=== PATIENT | female | born 1935 | race Caucasian/White ===

== ENCOUNTER 2017-03-23 20:09 | Inpatient (IN) | payer OTHER ==
--- NOTE | 2017-03-23 21:17 | PDOC ---
History of Present Illness - General History Source: Patient Exam Limitations: No Limitations - History of Present Illness Initial Comments: 03/23/17 23:02 The patient is an 81 year old female with a significant past medical history of HTN DM HLD CHF, who presents to the ED with worsening yellowing and itching of the skin. Patient has been in [place] since September. She returned home yesterday for jaundice concerns for the past ten days. She denies any abdominal pain, fever, chills. She reports losing 15 pounds since she left. She reports decreased appetite, and has noticed dark urine. She states she had an MRCP done in [place] which was nondiagnostic. She had a CT scan done as well which showed questionable pancreatitis mass. She was discharged with questionable Cholangitis, not put on antibiotics. <Lucien Mcgill - Last Filed: 03/24/17 01:33> <Malena Hernandez - Last Filed: 03/24/17 01:38> - General Chief Complaint: Jaundice Stated Complaint: YELLOW SKIN/YELLOW EYES Time Seen by Provider: 03/23/17 20:57 Past History <Lucien Mcgill - Last Filed: 03/24/17 01:33> - Past Medical History Cardiac Disorders: Yes (heart problems/a.fib) HTN: Yes Hypercholesterolemia: Yes (border line) Other medical history: edema - Immunization History Immunization Up to Date: Yes - Psycho/Social/Smoking Cessation Hx Anxiety: No Suicidal Ideation: No Smoking History: Never smoked Hx Alcohol Use: No Drug/Substance Use Hx: No Substance Use Type: None <Malena Hernandez - Last Filed: 03/24/17 01:38> - Past Medical History Allergies/Adverse Reactions: Allergies Allergy/AdvReac Type Severity Reaction Status Date / Time No Known Allergies Allergy Verified 03/23/17 20:30 Home Medications: Ambulatory Orders Ramipril 2.5 mg PO DAILY 08/14/16 Warfarin Na [Coumadin -] 3 mg PO DAILY 08/14/16 Bisoprolol Fumarate [Zebeta (Nf) -] 5 mg PO DAILY 03/23/17 Furosemide [Lasix -] 20 mg PO DAILY PRN 03/23/17 Review of Systems - Review of Systems Able to Perform ROS?: Yes Comments:: 03/23/17 23:02 GENERAL/CONSTITUTIONAL: No fever or chills. No weakness. HEAD, EYES, EARS, NOSE AND THROAT: No change in vision. No ear pain or discharge. No sore throat. CARDIOVASCULAR: No chest pain or shortness of breath. RESPIRATORY: No cough, wheezing, or hemoptysis. GASTROINTESTINAL: No nausea, vomiting, diarrhea or constipation. GENITOURINARY: No dysuria, frequency, or change in urination. MUSCULOSKELETAL: No joint or muscle swelling or pain. No neck or back pain. SKIN: + yellowing and itching of the skin. NEUROLOGIC: No headache, vertigo, loss of consciousness, or change in strength/ sensation. ENDOCRINE: + Decreased appetite. + lost 15 pounds. No increased thirst. HEMATOLOGIC/LYMPHATIC: No anemia, easy bleeding, or history of blood clots. ALLERGIC/IMMUNOLOGIC: No hives or skin allergy. <Lucien Mcgill - Last Filed: 03/24/17 01:33> *Physical Exam - Vital Signs Last Vital Signs Temp Pulse Resp BP Pulse Ox 97.8 F 97 H 20 130/87 98 03/23/17 20:32 03/23/17 20:32 03/23/17 20:32 03/23/17 20:32 03/23/17 20:32 - Physical Exam Comments: 03/23/17 23:03 GENERAL: Awake, alert, and fully oriented, in no acute distress HEAD: No signs of trauma EYES: Eyes icteric. PERRLA, EOMI, conjunctiva clear ENT: Auricles normal inspection, hearing grossly normal, nares patent, oropharynx clear without exudates. Moist mucosa NECK: Normal ROM, supple, no lymphadenopathy, JVD, or masses LUNGS: Breath sounds equal, clear to auscultation bilaterally. No wheezes, and no crackles HEART: Regular rate and rhythm, normal S1 and S2, no murmurs, rubs or gallops ABDOMEN: Soft, nontender, normoactive bowel sounds. No guarding, no rebound. No masses EXTREMITIES: Normal range of motion, no edema. No clubbing or cyanosis. No cords, erythema, or tenderness NEUROLOGICAL: Normal speech, normal gait SKIN: Skin is extremely jaundice. No appreciated rash <Lucien Mcgill - Last Filed: 03/24/17 01:33> - Vital Signs Last Vital Signs Temp Pulse Resp BP Pulse Ox 97.8 F 97 H 20 130/87 98 03/23/17 20:32 03/23/17 20:32 03/23/17 20:32 03/23/17 20:32 03/23/17 20:32 <Malena Hernandez - Last Filed: 03/24/17 01:38> ED Treatment Course - LABORATORY CBC & Chemistry Diagram: 03/23/17 21:16 03/23/17 21:16 - ADDITIONAL ORDERS Additional order review: Laboratory Results 03/23/17 03/23/17 03/23/17 21:39 21:16 21:16 Sodium Potassium Chloride Carbon Dioxide Anion Gap BUN Creatinine Creat Clearance w eGFR Random Glucose Lactic Acid 0.9 Calcium Total Bilirubin AST ALT Alkaline Phosphatase Ammonia Total Protein Albumin Lipase Urine Color Laura Urine Appearance Clear Urine pH 5.0 Urine Protein 2+ H Urine Glucose (UA) Negative Urine Ketones Negative Urine Blood 1+ H Urine Nitrite Negative Urine Bilirubin 4.0 Urine Urobilinogen 4.0 e.u/dl H Ur Leukocyte Esterase 1+ H Urine RBC 4 Urine WBC 47 Ur Epithelial Cells Rare Urine Bacteria Rare Urine Mucus Many Blood Type B POSITIVE Antibody Screen Negative 03/23/17 03/23/17 21:16 21:16 Sodium 141 Potassium 3.7 Chloride 106 Carbon Dioxide 24 Anion Gap 11 BUN 20 H Creatinine 0.8 Creat Clearance w eGFR > 60 Random Glucose 134 H D Lactic Acid Calcium 9.0 Total Bilirubin 21.6 H* D AST 53 H D ALT 45 D Alkaline Phosphatase 319 H D Ammonia 16.79 Total Protein 7.3 Albumin 3.0 L Lipase 6102 H Urine Color Urine Appearance Urine pH Urine Protein Urine Glucose (UA) Urine Ketones Urine Blood Urine Nitrite Urine Bilirubin Urine Urobilinogen Ur Leukocyte Esterase Urine RBC Urine WBC Ur Epithelial Cells Urine Bacteria Urine Mucus Blood Type Antibody Screen 03/23/17 21:16 RBC 4.09 MCV 97.3 H MCHC 33.6 RDW 17.0 H D MPV 9.1 D Neutrophils % 65.1 Lymphocytes % 23.5 Monocytes % 9.5 Eosinophils % 1.2 Basophils % 0.7 <Lucien Mcgill - Last Filed: 03/24/17 01:33> - LABORATORY CBC & Chemistry Diagram: 03/23/17 21:16 03/23/17 21:16 <Malena Hernandez - Last Filed: 03/24/17 01:38> Medical Decision Making - Medical Decision Making 03/23/17 23:[address] Hebert Discussed case with Dr. Banks. Paged Dr. Hebert at 00:30. Paged Dr Hebert at 01:06 (third call). 03/24/17 01:[address] Hebert. <Lucien Mcgill - Last Filed: 03/24/17 01:33> - Medical Decision Making 03/23/17 21:13 81 yo F with h/o HTN DM HLD CHF, here visiting from [place] ( lives alternating countries [place] 6 mo) here with jaundice for uncertain amount of time. was seen in [place], performed an ERCP, questionable pancreatic mass. diagnosed her with cholangitis? but did not treat abx. no n/v/abd pain or weight loss. also c/o diffuse rash pruritic. on exam awake alert slceral icteris, jaundice. lungs clear , heart rrr no mrg. abd NT ND . ext wwp nuero alert and oriented x 3. differential: pancreatic ca, obstruciton, infection, lytic jauncide. liver mass. ct a/p, labs. 03/23/17 22:51 <Malena Hernandez - Last Filed: 03/24/17 01:38> *DC/Admit/Observation/Transfer - Attestations Scribe Attestion: 03/23/17 23:04 Documentation prepared by Lucien Mcgill, acting as medical management trainer for Malena Hernandez MD, MD. <Lucien Mcgill - Last Filed: 03/24/17 01:33> - Discharge Dispostion Admit: Yes <Malena Hernandez - Last Filed: 03/24/17 01:38> Diagnosis at time of Disposition: Hyperbilirubinemia, Biliary tract obstruction - Referrals Referrals: Latesha Walton MD [Primary Care Provider] -
[2017-03-23 21:27] LABS: BASOPHIL 0.7 % (0-2.0); EOSINOPHIL 1.2 % (0-4.5); MCH 32.7 pg (25.7-33.7); MCHC 33.6 g/dl (32.0-36.0); MEAN CELL VOLUME 97.3 fl (80-96); MEAN PLT VOLUME 9.1 fl (7.5-11.1); NEUTROPHILS 65.1 % (42.8-82.8); PLATELET COUNT 212 K/MM3 (134-434); WHITE BLOOD COUNT 5.7 K/mm3 (4.0-10.0)
[2017-03-23 21:46] LABS: URINE APPEARANCE CLEAR; URINE COLOR AMBER; URINE GLUCOSE (UA) NEGATIVE (NEGATIVE); URINE KETONE NEGATIVE (NEGATIVE); URINE NITRITE NEGATIVE (NEGATIVE); URINE UROBILINOGEN 4.0 E.U/dl E.U./dl (0.2-1.0)
[2017-03-23 21:53] LABS: URINE BLOOD 1+ (NEGATIVE); URINE LEUK ESTERASE 1+ (NEGATIVE); URINE PROTEIN 2+ (NEGATIVE)
[2017-03-23 21:56] LABS: URINE BACTERIA RARE /hpf (NONE SEEN); URINE MUCUS MANY; URINE RBC 4 /hpf (0-3); URINE WBC 47 /hpf (3-5)
[2017-03-23 21:58] LABS: ANION GAP 11 (8-16); CO2 24 mmol/L (21-32); CREATININE 0.8 mg/dL (0.55-1.02); GLUCOSE,RANDOM 134 mg/dL (74-106); SGOT/AST 53 U/L (15-37); SGPT/ALT 45 U/L (12-78)
[2017-03-23 22:07] LABS: ALK PHOS 319 U/L (45-117)
[2017-03-23 22:13] LABS: TOT PROT 7.3 g/dl (6.4-8.2)
[2017-03-23 22:14] LABS: BILIRUBIN,TOTAL 21.6 mg/dL (0.2-1.0)
[2017-03-23] MEDS ORDERED: SODIUM CHLORIDE 0.9% 1000 ML INFUS.BAG IV ONE (22:54)
[2017-03-24 04:08] VITALS: BMI 29.8
[2017-03-24 09:07] LABS: EOSINOPHIL 2.4 % (0-4.5); MCH 33.5 pg (25.7-33.7); MCHC 34.2 g/dl (32.0-36.0); MEAN CELL VOLUME 98.1 fl (80-96); NEUTROPHILS 59.1 % (42.8-82.8); PLATELET COUNT 195 K/MM3 (134-434); RDW 17.4 % (11.6-15.6); WHITE BLOOD COUNT 4.5 K/mm3 (4.0-10.0)
[2017-03-24 09:20] LABS: INR 1.25 (0.82-1.09); PROTHROMBIN TIME (PATIENT) 13.8 SEC (9.98-11.88)
[2017-03-24 09:34] LABS: CALCIUM 8.6 mg/dL (8.5-10.1)
[2017-03-24 09:51] LABS: ALBUMIN 2.5 g/dl (3.4-5.0); ALK PHOS 299 U/L (45-117); AMYLASE 209 U/L (25-115); ANION GAP 9 (8-16); CO2 23 mmol/L (21-32); CREATININE 0.8 mg/dL (0.55-1.02); GLUCOSE,RANDOM 89 mg/dL (74-106); SGOT/AST 52 U/L (15-37); SGPT/ALT 39 U/L (12-78); TOT PROT 6.7 g/dl (6.4-8.2)
[2017-03-24] MEDS: NEBIVOLOL 5 MG TABLET (FP) PO SCH (10:37)
[2017-03-24] MEDS: D5-1/2NS+20 MEQ KCL - 1,000 ML IV SCH (10:37)
[2017-03-24] MEDS: PANTOPRAZOLE 40 MG TABLET (FP) PO SCH (10:37)
[2017-03-24] MEDS: RAMIPRIL 2.5 MG CAPSULE (FP) PO SCH (10:38)
[2017-03-24 10:40] LABS: BILIRUBIN,TOTAL 19.3 mg/dL (0.2-1.0)
--- NOTE | 2017-03-24 12:03 | HP ---
Admitting History and Physical - Primary Care Physician PCP: Latesha Walton - Admission History Source: Family Member (DAUGHTER) Limitations to Obtaining History: Language Barrier (SPEAKS [place]ULGARIAN ONLY) - Past Medical History Cardiovascular: Yes: AFIB - Past Surgical History Past Surgical History: Yes: None - Smoking History Smoking history: Former smoker Have you smoked in the past 12 months: No - Alcohol/Substance Use Hx Alcohol Use: No Home Medications - Allergies Allergies/Adverse Reactions: Allergies Allergy/AdvReac Type Severity Reaction Status Date / Time No Known Allergies Allergy Verified 03/23/17 20:30 - Home Medications Home Medications: Ambulatory Orders Ramipril 2.5 mg PO DAILY 08/14/16 Warfarin Na [Coumadin -] 3 mg PO DAILY 08/14/16 Bisoprolol Fumarate [Zebeta (Nf) -] 5 mg PO DAILY 03/23/17 Furosemide [Lasix -] 20 mg PO DAILY PRN 03/23/17 Physical Examination Vital Signs: Vital Signs Temperature 98.6 F 03/24/17 06:00 Pulse Rate 109 H 03/24/17 06:00 Respiratory Rate 20 03/24/17 06:00 Blood Pressure 126/73 03/24/17 06:00 O2 Sat by Pulse Oximetry (%) 97 03/24/17 04:08 Constitutional: Yes: Well Nourished, No Distress, Calm Cardiovascular: Yes: Regular Rate and Rhythm Respiratory: Yes: Regular Gastrointestinal: Yes: Normal Bowel Sounds, Soft Musculoskeletal: Yes: WNL Extremities: Yes: WNL Edema: Yes Edema: LLE: Trace, RLE: Trace Peripheral Pulses WNL: Yes Labs: CBC, BMP 03/24/17 08:45 03/24/17 08:45 Problem List - Problems (1) Biliary obstruction Assessment/Plan: CT ABDOMEN REVIEWED AWAITING ERCP IVF NPO Code(s): K83.1 - OBSTRUCTION OF BILE DUCT (2) Hyperbilirubinemia Assessment/Plan: PATIENT ASYMPTOMATIC, NO ABDOMINAL PAIN AWAITING ERCP Abnormal Lab Results 03/23/17 03/23/17 03/23/17 21:16 21:16 21:39 MCV 97.3 H RDW 17.0 H D Monocytes % INR Chloride BUN 20 H Random Glucose 134 H D Total Bilirubin 21.6 H* D Direct Bilirubin AST 53 H D Alkaline Phosphatase 319 H D Albumin 3.0 L Total Amylase Lipase 6102 H Urine Protein 2+ H Urine Blood 1+ H Urine Urobilinogen 4.0 e.u/dl H Ur Leukocyte Esterase 1+ H 03/23/17 03/24/17 03/24/17 23:22 08:45 08:45 MCV 98.1 H RDW 17.4 H Monocytes % 10.7 H INR 1.25 H D Chloride BUN Random Glucose Total Bilirubin Direct Bilirubin 17.1 H* AST Alkaline Phosphatase Albumin Total Amylase Lipase Urine Protein Urine Blood Urine Urobilinogen Ur Leukocyte Esterase 03/24/17 08:45 MCV RDW Monocytes % INR Chloride 109 H BUN Random Glucose Total Bilirubin 19.3 H* Direct Bilirubin AST 52 H Alkaline Phosphatase 299 H Albumin 2.5 L Total Amylase 209 H Lipase 2894 H Urine Protein Urine Blood Urine Urobilinogen Ur Leukocyte Esterase Code(s): E80.6 - OTHER DISORDERS OF BILIRUBIN METABOLISM (3) CHF (congestive heart failure) Code(s): I50.9 - HEART FAILURE, UNSPECIFIED Assessment/Plan GI CONSULT ERCP IVF LABS IN AM
--- NOTE | 2017-03-24 18:47 | CON.GI ---
Consult Consult Specialty:: GASTROENTEROLOGY Referred by:: SAVANAH Reason for Consultation:: JAUNDICE, ABNORMAL LIVER TEST, ABNORMAL USG, CT AND MRI - History Source History Provided By: Patient, Family Member, Medical Record Limitations to Obtaining History: No Limitations - Past Medical History Cardio/Vascular: Yes: AFIB, HTN - Past Surgical History Past Surgical History: Yes: None - Alcohol/Substance Use Hx Alcohol Use: No - Smoking History Smoking history: Former smoker Have you smoked in the past 12 months: No - Social History Usual Living Arrangement: With Child Home Medications - Allergies Allergies/Adverse Reactions: Allergies Allergy/AdvReac Type Severity Reaction Status Date / Time No Known Allergies Allergy Verified 03/23/17 20:30 - Home Medications Home Medications: Ambulatory Orders Ramipril 2.5 mg PO DAILY 08/14/16 Warfarin Na [Coumadin -] 3 mg PO DAILY 08/14/16 Bisoprolol Fumarate [Zebeta (Nf) -] 5 mg PO DAILY 03/23/17 Furosemide [Lasix -] 20 mg PO DAILY PRN 03/23/17 Family Disease History - Family Disease History Other Family History: noN CONTRIBUTORY Review of Systems - Review of Systems Constitutional: reports: Loss of Appetite, Unintentional Wgt. Loss, Weakness Gastrointestinal: reports: Indigestion, Nausea Physical Exam-GI Vital Signs: Vital Signs Temperature 98.8 F 03/24/17 18:00 Pulse Rate 81 03/24/17 18:00 Respiratory Rate 20 03/24/17 18:00 Blood Pressure 109/65 03/24/17 18:00 O2 Sat by Pulse Oximetry (%) 98 03/24/17 09:00 Constitutional: Yes: No Distress Labs: CBC, BMP 03/24/17 08:45 03/24/17 08:45 INR, PTT INR 1.25 (0.82-1.09) H D 03/24/17 08:45 Imaging - Results Cat Scan: Report Reviewed, Image Reviewed Ultrasound: Report Reviewed, Image Reviewed MRI: Report Reviewed, Image Reviewed Problem List - Problems (1) Biliary obstruction Code(s): K83.1 - OBSTRUCTION OF BILE DUCT
[2017-03-25] MEDS: D5-1/2NS+20 MEQ KCL - 1,000 ML IV SCH ×2 (05:17→11:20)
[2017-03-25 07:31] LABS: BASOPHIL 0.9 % (0-2.0); EOSINOPHIL 1.6 % (0-4.5); MCH 33.8 pg (25.7-33.7); MCHC 34.6 g/dl (32.0-36.0); MEAN CELL VOLUME 97.7 fl (80-96); MEAN PLT VOLUME 8.9 fl (7.5-11.1); NEUTROPHILS 55.9 % (42.8-82.8); PLATELET COUNT 196 K/MM3 (134-434); RDW 17.2 % (11.6-15.6); WHITE BLOOD COUNT 4.9 K/mm3 (4.0-10.0)
[2017-03-25 08:07] LABS: ALBUMIN 2.5 g/dl (3.4-5.0); ALK PHOS 303 U/L (45-117); ANION GAP 11 (8-16); CALCIUM 8.4 mg/dL (8.5-10.1); CO2 24 mmol/L (21-32); CREATININE 0.9 mg/dL (0.55-1.02); GLUCOSE,RANDOM 96 mg/dL (74-106); SGOT/AST 54 U/L (15-37); SGPT/ALT 40 U/L (12-78)
[2017-03-25 08:27] LABS: BILIRUBIN,TOTAL 19.9 mg/dL (0.2-1.0); TOT PROT 6.5 g/dl (6.4-8.2)
[2017-03-25 08:45] LABS: INR 1.35 (0.82-1.09); PROTHROMBIN TIME (PATIENT) 14.9 SEC (9.98-11.88)
[2017-03-25] MEDS: RAMIPRIL 2.5 MG CAPSULE (FP) PO SCH (09:20)
[2017-03-25] MEDS: NEBIVOLOL 5 MG TABLET (FP) PO SCH (09:21)
[2017-03-25] MEDS: PANTOPRAZOLE 40 MG TABLET (FP) PO SCH (09:21)
--- NOTE | 2017-03-25 09:26 | PN ---
Progress Note, Physician History of Present Illness: no pain jaundice - Current Medication List Current Medications: Active Medications Diphenhydramine HCl (Benadryl Injection -) 50 mg IVPUSH BID [facility] Last Admin: 03/24/17 21:43 Dose: 50 mg Potassium Chloride/Dextrose/Sod Cl (D5-1/2ns+20 Meq Kcl -) 1,000 mls @ 75 mls/ hr IV ASDIR [facility] Last Admin: 03/25/17 05:17 Dose: 75 mls/hr Nebivolol (Bystolic -) 10 mg PO DAILY [facility] Last Admin: 03/24/17 10:37 Dose: 10 mg Pantoprazole Sodium (Protonix -) 40 mg PO DAILY [facility] Last Admin: 03/24/17 10:37 Dose: 40 mg Ramipril (Altace -) 2.5 mg PO DAILY [facility] Last Admin: 03/24/17 10:38 Dose: 2.5 mg - Objective Vital Signs: Vital Signs Temperature 98.7 F 03/25/17 06:00 Pulse Rate 79 03/25/17 06:00 Respiratory Rate 18 03/25/17 06:00 Blood Pressure 139/99 03/25/17 06:00 O2 Sat by Pulse Oximetry (%) 98 03/24/17 09:00 Cardiovascular: Yes: Regular Rate and Rhythm Respiratory: Yes: Regular, CTA Bilaterally Gastrointestinal: Yes: Normal Bowel Sounds, Soft. No: Tenderness Labs: CBC, BMP 03/25/17 06:00 03/25/17 06:00 INR, PTT INR 1.35 (0.82-1.09) H 03/25/17 06:00 Problem List - Problems (1) Biliary obstruction Assessment/Plan: CA 19-9 HIGH FOR ERCP TODAY AC ON HOLD FURTHER W/U PER GI Code(s): K83.1 - OBSTRUCTION OF BILE DUCT (2) Hyperbilirubinemia Assessment/Plan: R/O CHOLANGIOCARCINOMA Code(s): E80.6 - OTHER DISORDERS OF BILIRUBIN METABOLISM (3) Afib Assessment/Plan: AC ONCE CLEARED BY GI CARDIO Code(s): I48.91 - UNSPECIFIED ATRIAL FIBRILLATION Qualifiers: Atrial fibrillation type: unspecified Qualified Code(s): I48.91 - Unspecified atrial fibrillation (4) CHF (congestive heart failure) Assessment/Plan: HOLD LASIX Code(s): I50.9 - HEART FAILURE, UNSPECIFIED
[2017-03-25] MEDS ORDERED: PROPOFOL 20 ML ONE (09:50)
[2017-03-25] MEDS ORDERED: SUCCINYLCHOLINE CHLORIDE 200 MG/10 ML VIAL ONE (09:51)
[2017-03-25] MEDS ORDERED: ONDANSETRON 4 MG/2 ML VIAL ONE (09:51)
[2017-03-25] MEDS ORDERED: INDOMETHACIN 50 MG RECTAL SUPPOSITORY PR ONE ×3 (10:30→10:45)
[2017-03-25] MEDS ORDERED: CIPROFLOXACIN 400 MG/D5W 200 ML IVPB ONE (10:30)
[2017-03-25] MEDS ORDERED: CIPROFLOXACIN 400 MG PREMIX BAG IVPB ONE (10:45)
[2017-03-25] MEDS ORDERED: NEOSTIGMINE METHYLSULFATE 0.5 MG/ML - 10 ML MDV ONE (12:04)
[2017-03-25] MEDS ORDERED: ONDANSETRON 4 MG/2 ML VIAL IVPUSH PRN (12:23)
--- NOTE | 2017-03-25 12:39 | CON.CARD ---
Consult Consult Specialty:: Cardiology Referred by:: Dr Hebert Reason for Consultation:: atrial fibrillation - History of Present Illness Chief Complaint: jaundice History of Present Illness: She is an 81 year old woman with a history of HTN NIDDM HLD, atrial fibrillation on coumadin, who was admitted with painless jaundice for one month. Underwent ERCP today with stricture and sphincterotomy with stent placement x 2. No history of angina, orthopnea, PND or edema. Baseline exercise tolerance is excellent as per her daughter. - History Source History Provided By: Family Member, Medical Record Limitations to Obtaining History: Language Barrier - Past Medical History Cardio/Vascular: Yes: AFIB, HTN - Past Surgical History Past Surgical History: Yes: None - Alcohol/Substance Use Hx Alcohol Use: No - Smoking History Smoking history: Former smoker Have you smoked in the past 12 months: No - Social History Usual Living Arrangement: With Child Home Medications - Allergies Allergies/Adverse Reactions: Allergies Allergy/AdvReac Type Severity Reaction Status Date / Time No Known Allergies Allergy Verified 03/23/17 20:30 - Home Medications Home Medications: Ambulatory Orders Ramipril 2.5 mg PO DAILY 08/14/16 Warfarin Na [Coumadin -] 3 mg PO DAILY 08/14/16 Bisoprolol Fumarate [Zebeta (Nf) -] 5 mg PO DAILY 03/23/17 Furosemide [Lasix -] 20 mg PO DAILY PRN 03/23/17 Family Disease History - Family Disease History Other Family History: noN CONTRIBUTORY Review of Systems - Review of Systems Constitutional: reports: Malaise, Unintentional Wgt. Loss Cardiovascular: reports: No Symptoms Respiratory: reports: No Symptoms Vital Signs: Vital Signs Temperature 98.1 F 03/25/17 08:00 Pulse Rate 68 03/25/17 08:00 Respiratory Rate 16 03/25/17 08:00 Blood Pressure 125/79 03/25/17 08:00 O2 Sat by Pulse Oximetry (%) 98 03/24/17 09:00 Constitutional: Yes: No Distress Eyes: Yes: EOM Intact, Sclera Icterus HENT: Yes: Atraumatic, Normocephalic Neck: Yes: Supple, Trachea Midline Respiratory: Yes: Regular, CTA Bilaterally Gastrointestinal: Yes: Normal Bowel Sounds, Soft Cardiovascular: Yes: Pulse Irregular JVD: No Carotid Bruit: No PMI: Non-Displaced Heart Sounds: Yes: S1, S2 Murmur: Yes: Systolic Murmur, Grade 1 Musculoskeletal: Yes: WNL Extremities: Yes: WNL Edema: No Peripheral Pulses WNL: Yes - Other Data Labs, Other Data: CBC, BMP 03/25/17 06:00 03/25/17 06:00 INR, PTT INR 1.35 (0.82-1.09) H 03/25/17 06:00 Imaging - Results EKG: Report Reviewed (afib nssttw changes.) Problem List - Problems (1) Afib Assessment/Plan: Rates are controlled on beta kal. Would hold coumadin for now, resume when stable in the future as there are undoubtedly more procedures to be done in this patient who likely has pancreatic cancer. continue nebivolol for now. would get echo to assess LV function. No cardiac contraindications to EUS, biopsy. Likely transfer to another facility for this. Code(s): I48.91 - UNSPECIFIED ATRIAL FIBRILLATION Qualifiers: Atrial fibrillation type: chronic Qualified Code(s): I48.2 - Chronic atrial fibrillation
--- NOTE | 2017-03-25 12:48 | PROC ---
Procedure Note Procedure: ERCP Full note to follow INDICATION: Obstructive jaundice Premedications: ciprofloxacin 400 mg IV, rectal indomethacin 100 mg Sedation as per anesthesia FINDINGS Normal papilla The PD was cannulated and a pancreatogram obtained, proximal PD stenosis sp placement of a 5 Fr plastic JAIME-FLEX stent The CBD was cannulated, a distal CBD stenosis was noted with proximal dilation of the CBD, CHD and intrahepatics. A sphincterotomy was performed and a 10 Fr by 7 cm stent was placed into the CBD IMPRESSION CBD stenosis sp sphincterotomy and stent placement PD stenosis , sp stent placement PLAN Return to floor Resume regular diet HOLD anticoagulation for 72 hours HOLD NSAIDs and ASA for 7 days Schedule for EUS FNA as an outpatient, patient to call [phone] to make an appointment Further management as per Dr Hebert.
[2017-03-26 07:36] LABS: BASOPHIL 0.3 % (0-2.0); EOSINOPHIL 1.1 % (0-4.5); MCH 33.6 pg (25.7-33.7); MEAN CELL VOLUME 98.8 fl (80-96); MEAN PLT VOLUME 9.1 fl (7.5-11.1); NEUTROPHILS 65.1 % (42.8-82.8); PLATELET COUNT 196 K/MM3 (134-434); RDW 17.1 % (11.6-15.6); WHITE BLOOD COUNT 5.4 K/mm3 (4.0-10.0)
[2017-03-26 07:49] LABS: ALBUMIN 2.3 g/dl (3.4-5.0); ANION GAP 8 (8-16); CALCIUM 8.8 mg/dL (8.5-10.1); CO2 25 mmol/L (21-32); CREATININE 1.4 mg/dL (0.55-1.02); GLUCOSE,RANDOM 87 mg/dL (74-106); SGOT/AST 48 U/L (15-37); SGPT/ALT 34 U/L (12-78); TOT PROT 5.8 g/dl (6.4-8.2)
[2017-03-26 07:57] LABS: ALK PHOS 281 U/L (45-117)
[2017-03-26 08:45] LABS: BILIRUBIN,DIRECT 15.7 mg/dL (0.0-0.2); BILIRUBIN,TOTAL 19.6 mg/dL (0.2-1.0)
--- NOTE | 2017-03-26 10:55 | PN ---
Progress Note, Physician Chief Complaint: AWAKE ALERT DAUGHTER BEDSIDE - Current Medication List Current Medications: Active Medications Diphenhydramine HCl (Benadryl Injection -) 50 mg IVPUSH BID [facility] Last Admin: 03/25/17 22:10 Dose: 50 mg Nebivolol (Bystolic -) 10 mg PO DAILY [facility] Last Admin: 03/25/17 09:21 Dose: 10 mg Pantoprazole Sodium (Protonix -) 40 mg PO DAILY [facility] Last Admin: 03/25/17 09:21 Dose: 40 mg Ramipril (Altace -) 2.5 mg PO DAILY [facility] Last Admin: 03/25/17 09:20 Dose: 2.5 mg - Objective Vital Signs: Vital Signs Temperature 98.2 F 03/26/17 05:45 Pulse Rate 69 03/26/17 05:45 Respiratory Rate 20 03/26/17 05:45 Blood Pressure 97/53 03/26/17 05:45 O2 Sat by Pulse Oximetry (%) 98 03/25/17 21:00 Constitutional: Yes: Mild Distress Eyes: Yes: Sclera Icterus HENT: Yes: WNL Neck: Yes: WNL Cardiovascular: Yes: Pulse Irregular Respiratory: Yes: WNL Gastrointestinal: Yes: WNL Genitourinary: Yes: WNL Musculoskeletal: Yes: WNL Extremities: Yes: WNL Edema: No Peripheral Pulses WNL: Yes Integumentary: Yes: Jaundice Wound/Incision: Yes: Clean/Dry Neurological: Yes: Pre-Existing Deficit ...Motor Strength: LLE, RLE Psychiatric: Yes: Other Labs: CBC, BMP 03/26/17 06:00 03/26/17 06:00 INR, PTT INR 1.35 (0.82-1.09) H 03/25/17 06:00 Problem List - Problems (1) Biliary obstruction Code(s): K83.1 - OBSTRUCTION OF BILE DUCT (2) Hyperbilirubinemia Code(s): E80.6 - OTHER DISORDERS OF BILIRUBIN METABOLISM (3) Afib Code(s): I48.91 - UNSPECIFIED ATRIAL FIBRILLATION Qualifiers: Atrial fibrillation type: chronic Qualified Code(s): I48.2 - Chronic atrial fibrillation (4) HTN (hypertension) Code(s): I10 - ESSENTIAL (PRIMARY) HYPERTENSION Assessment/Plan CARDIAC CLEARANCE ORDERED STRESS/ECHO/CAROTID DOPPLERS DISCUSSED WITH DR TSAI, PATIENT WILL NEED EUS BIOPSY WILL NEED TO DECIDE ON AC JAKOB SCORE QUALIFIES HER FOR AC WILL D/W DR MCWILLIAMS AFTER CARDIAC WORKUP FULL LIQUID DIET
[2017-03-26] MEDS: NEBIVOLOL 5 MG TABLET (FP) PO SCH (11:20)
[2017-03-26] MEDS: RAMIPRIL 2.5 MG CAPSULE (FP) PO SCH (11:20)
[2017-03-26] MEDS: PANTOPRAZOLE 40 MG TABLET (FP) PO SCH (15:21)
--- NOTE | 2017-03-26 15:38 | PN ---
Progress Note, Physician Chief Complaint: no complaints History of Present Illness: She is an 81 year old woman with a history of HTN NIDDM HLD, atrial fibrillation on coumadin, who was admitted with painless jaundice for one month. Underwent ERCP today with stricture and sphincterotomy with stent placement x 2. No history of angina, orthopnea, PND or edema. Baseline exercise tolerance is excellent as per her daughter. echo normal ef, RV dilated and hypokinetic. Severe TR. - Current Medication List Current Medications: Active Medications Bacitracin (Bacitracin -) 1 applic TP BID [facility] Diphenhydramine HCl (Benadryl Injection -) 50 mg IVPUSH BID [facility] Last Admin: 03/26/17 10:55 Dose: 50 mg Nebivolol (Bystolic -) 10 mg PO DAILY [facility] Last Admin: 03/26/17 11:20 Dose: Not Given Pantoprazole Sodium (Protonix -) 40 mg PO DAILY [facility] Last Admin: 03/26/17 15:21 Dose: Not Given Ramipril (Altace -) 2.5 mg PO DAILY [facility] Last Admin: 03/26/17 11:20 Dose: Not Given - Objective Vital Signs: Vital Signs Temperature 97.9 F 03/26/17 14:23 Pulse Rate 106 H 03/26/17 14:23 Respiratory Rate 16 03/26/17 14:23 Blood Pressure 100/69 03/26/17 14:23 O2 Sat by Pulse Oximetry (%) 95 03/26/17 09:00 Constitutional: Yes: Well Nourished, No Distress, Cachectic Eyes: Yes: Sclera Icterus HENT: Yes: Atraumatic, Normocephalic Neck: Yes: Supple, Trachea Midline Cardiovascular: Yes: Regular Rate and Rhythm Respiratory: Yes: Regular, CTA Bilaterally Gastrointestinal: Yes: Normal Bowel Sounds, Soft Edema: No Peripheral Pulses WNL: Yes Labs: CBC, BMP 03/26/17 06:00 03/26/17 06:00 INR, PTT INR 1.35 (0.82-1.09) H 03/25/17 06:00 Problem List - Problems (1) Afib Assessment/Plan: Rates are controlled on beta kal. Would hold coumadin for now, resume when stable in the future as there are undoubtedly more procedures to be done in this patient who likely has pancreatic cancer. Resume coumadin when there are no procedures planned. continue nebivolol for now. EF is normal by echo, but dilated RV with RV hypokinesis and severe TR raises the possibility of pulmonary emboli. Would get CT scan or VQ scan No cardiac contraindications to EUS, biopsy. Likely transfer to another facility for this. Code(s): I48.91 - UNSPECIFIED ATRIAL FIBRILLATION Qualifiers: Atrial fibrillation type: chronic Qualified Code(s): I48.2 - Chronic atrial fibrillation
--- NOTE | 2017-03-26 17:13 | PN ---
Progress Note (short form) - Note Progress Note: Anesthesiology Post-op POD#1 s/p ERCP under GA. Pt. feels well, denies pain. Receiving Benadryl for pruritis secondary to elevated bilirubin. No apparent anesthesia-related issues. VSS.
[2017-03-26] MEDS ORDERED: SODIUM CHLORIDE 250 ML IV ONE (17:40)
[2017-03-26] MEDS: BACITRACIN 15 GM TUBE TOPICAL OINTMENT TP SCH ×2 (17:44→22:27)
--- NOTE | 2017-03-26 21:31 | PN ---
Progress Note (short form) - Note Progress Note: 81 year old woman with a history of HTN NIDDM HLD, atrial fibrillation on coumadin, who was admitted with painless jaundice. No new complaints. Exam: Jaundice, CARDIAC: Irregular irregular rhythm, CHEST: Clear to auscultation, ABDOMEN: Benign, normal bowel sounds, non tender, non distended. EXTREM: bilateral edema. 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 Awaiting cardiac evaluation and clearance for possible pancreatic surgery Problem List - Problems (1) Biliary obstruction Code(s): K83.1 - OBSTRUCTION OF BILE DUCT
[2017-03-27 07:46] LABS: MEAN CELL VOLUME 97.3 fl (80-96); MEAN PLT VOLUME 9.1 fl (7.5-11.1); PLATELET COUNT 195 K/MM3 (134-434); WHITE BLOOD COUNT 6.2 K/mm3 (4.0-10.0)
[2017-03-27 08:14] LABS: ALBUMIN 2.3 g/dl (3.4-5.0)
[2017-03-27 08:29] LABS: ALK PHOS 303 U/L (45-117); ANION GAP 10 (8-16); CALCIUM 8.8 mg/dL (8.5-10.1); CO2 23 mmol/L (21-32); CREATININE 1.6 mg/dL (0.55-1.02); GLUCOSE,RANDOM 96 mg/dL (74-106); SGOT/AST 48 U/L (15-37); SGPT/ALT 31 U/L (12-78)
[2017-03-27 08:48] LABS: TOT PROT 5.9 g/dl (6.4-8.2)
[2017-03-27 09:44] LABS: BILIRUBIN,TOTAL 21.2 mg/dL (0.2-1.0)
[2017-03-27] MEDS ORDERED: DIPYRIDAMOLE STRESS TEST IVPB ONE (10:00)
[2017-03-27] MEDS ORDERED: WATER IVPB ONE (10:00)
[2017-03-27] MEDS ORDERED: DEXTROSE 5% IVPB ONE (10:00)
[2017-03-27] MEDS ORDERED: PNEUMOC 13-VAL CONJ-DIP CRM/PF 0.5 ML DISP.SYRIN IM ONE (11:00)
[2017-03-27] MEDS: RAMIPRIL 2.5 MG CAPSULE (FP) PO SCH (14:15)
[2017-03-27] MEDS: NEBIVOLOL 5 MG TABLET (FP) PO SCH (14:15)
[2017-03-27] MEDS: PANTOPRAZOLE 40 MG TABLET (FP) PO SCH (14:15)
[2017-03-27] MEDS: BACITRACIN 15 GM TUBE TOPICAL OINTMENT TP SCH ×2 (14:16→21:52)
--- NOTE | 2017-03-27 14:33 | PN ---
Progress Note, Physician Chief Complaint: no complaints History of Present Illness: She is an 81 year old woman with a history of HTN NIDDM HLD, atrial fibrillation on coumadin, who was admitted with painless jaundice for one month. Underwent ERCP today with stricture and sphincterotomy with stent placement x 2. No history of angina, orthopnea, PND or edema. Baseline exercise tolerance is excellent as per her daughter. echo 03/26/17: normal ef, RV dilated and hypokinetic. Severe TR. nuclear stress test 03/27/17: normal perfusion. - Current Medication List Current Medications: Active Medications Bacitracin (Bacitracin -) 1 applic TP BID ON LICENSE OF [facility] Last Admin: 03/27/17 14:16 Dose: 1 applic Diphenhydramine HCl (Benadryl Injection -) 50 mg IVPUSH BID ON LICENSE OF [facility] Last Admin: 03/27/17 14:15 Dose: 50 mg Nebivolol (Bystolic -) 10 mg PO DAILY ON LICENSE OF [facility] Last Admin: 03/27/17 14:15 Dose: 10 mg Pantoprazole Sodium (Protonix -) 40 mg PO DAILY ON LICENSE OF [facility] Last Admin: 03/27/17 14:15 Dose: 40 mg Ramipril (Altace -) 2.5 mg PO DAILY ON LICENSE OF [facility] Last Admin: 03/27/17 14:15 Dose: 2.5 mg - Objective Vital Signs: Vital Signs Temperature 98.5 F 03/27/17 14:01 Pulse Rate 85 03/27/17 14:01 Respiratory Rate 18 03/27/17 14:01 Blood Pressure 121/75 03/27/17 14:01 O2 Sat by Pulse Oximetry (%) 95 03/26/17 21:00 Constitutional: Yes: No Distress Eyes: Yes: Sclera Icterus HENT: Yes: Atraumatic, Normocephalic Neck: Yes: Supple, Trachea Midline Cardiovascular: Yes: Regular Rate and Rhythm Respiratory: Yes: Regular, CTA Bilaterally Gastrointestinal: Yes: Normal Bowel Sounds Extremities: Yes: WNL Edema: No Peripheral Pulses WNL: Yes Integumentary: Yes: Jaundice Labs: CBC, BMP 03/27/17 06:00 03/27/17 06:00 INR, PTT INR 1.35 (0.82-1.09) H 03/25/17 06:00 Problem List - Problems (1) Afib Assessment/Plan: Rates are controlled on beta kal. Would hold coumadin for now, resume when stable in the future as there are undoubtedly more procedures to be done in this patient who likely has pancreatic cancer. Resume coumadin when there are no procedures planned. continue nebivolol for now. EF is normal by echo, but dilated RV with RV hypokinesis and severe TR raises the possibility of pulmonary emboli. Would get CT scan of the chest or VQ scan No cardiac contraindications to EUS, biopsy or pancreatic surgery. Likely transfer to another facility for this. If no plans for PE workup would resume AC with low molecular weight heparin while waiting for procedures. If she is going home would start Xarelto for AC rather than coumadin. Will follow as needed. Code(s): I48.91 - UNSPECIFIED ATRIAL FIBRILLATION Qualifiers: Atrial fibrillation type: chronic Qualified Code(s): I48.2 - Chronic atrial fibrillation (2) Preop cardiovascular exam Assessment/Plan: there are no cardiac contraindications to ERCP, EUS biopsy or pancreatic surgery. She is at intermediate risk of perioperative events. No further cardiac testing is needed. Code(s): Z01.810 - ENCOUNTER FOR PREPROCEDURAL CARDIOVASCULAR EXAMINATION
--- NOTE | 2017-03-27 14:43 | DS ---
Physical Examination Vital Signs: Vital Signs Temperature 98.5 F 03/27/17 14:01 Pulse Rate 85 03/27/17 14:01 Respiratory Rate 18 03/27/17 14:01 Blood Pressure 121/75 03/27/17 14:01 O2 Sat by Pulse Oximetry (%) 95 03/26/17 21:00 Constitutional: Yes: Mild Distress Eyes: Yes: Sclera Icterus HENT: Yes: WNL Neck: Yes: WNL Cardiovascular: Yes: WNL Respiratory: Yes: WNL Gastrointestinal: Yes: WNL Renal/: Yes: WNL Musculoskeletal: Yes: Muscle Weakness Extremities: Yes: WNL Edema: No Peripheral Pulses WNL: Yes Integumentary: Yes: Jaundice Wound/Incision: Yes: Clean/Dry Neurological: Yes: WNL ...Motor Strength: WNL Psychiatric: Yes: WNL Labs: CBC, BMP 03/27/17 06:00 03/27/17 06:00 Discharge Summary Reason For Visit: BILIARY OBSTRUCTION Current Active Problems Biliary obstruction (Acute) Hyperbilirubinemia (Acute) Preop cardiovascular exam (Acute) Procedures: Principal: ERCP Other Procedures: BILARY STRICTURE, S/P STENT ERCP, WILL NEED FURTHER MANAGMENT AT [facility]. CT ABD Hospital Course: ERSP STENT BILIARY STRICTURE, WILL NEED EUS BIOPSY AND POSSIBLE WHIPPLE? Condition: Fair - Instructions Diet, Activity, Other Instructions: FULL LIQUID Referrals: Latesha Walton MD [Primary Care Provider] - Disposition: TRANSFER ACUTE CARE/OTHER HOSP - Home Medications Comprehensive Discharge Medication List: Ambulatory Orders Ramipril 2.5 mg PO DAILY 08/14/16 Warfarin Na [Coumadin -] 3 mg PO DAILY 08/14/16 Bisoprolol Fumarate [Zebeta (Nf) -] 5 mg PO DAILY 03/23/17 Furosemide [Lasix -] 20 mg PO DAILY PRN 03/23/17 Bacitracin - [Bacitracin Topical Ointment -] 1 applic TP BID tube 03/27/17 Diphenhydramine [Benadryl Injection -] 50 mg IVPUSH BID vial 03/27/17 Nebivolol [Bystolic -] 10 mg PO DAILY tab 03/27/17
--- NOTE | 2017-03-27 15:35 | CONSULT ---
Consultation: REQUESTING PROVIDER: CONSULT REQUEST: We have been asked to medically evaluate this patient for FARHANA HISTORY OF PRESENT ILLNESS: 81 year old woman with a history of HTN NIDDM HLD, atrial fibrillation on coumadin, who was admitted with painless jaundice for one month. Underwent ERCP 02/23/17 with stricture and sphincterotomy with stent placement x 2. S/P ERCP continue to be jaundice but no abdominal pain. Denies CP,CARTER, SOB, abd. REVIEW OF SYSTEMS: CONSTITUTIONAL: Absent: fever, chills, diaphoresis, generalized weakness, malaise, loss of appetite, weight change HEENT: Absent: rhinorrhea, nasal congestion, throat pain, throat swelling, difficulty swallowing, mouth swelling, ear pain, eye pain, visual changes CARDIOVASCULAR: Absent: chest pain, syncope, palpitations, irregular heart rate, lightheadedness , peripheral edema RESPIRATORY: Absent: cough, shortness of breath, dyspnea with exertion, orthopnea, wheezing, stridor, hemoptysis GASTROINTESTINAL: Absent: abdominal pain, abdominal distension, nausea, vomiting, diarrhea, constipation, melena, hematochezia GENITOURINARY: Absent: dysuria, frequency, urgency, hesitancy, hematuria, flank pain, genital pain MUSCULOSKELETAL: Absent: myalgia, arthralgia, joint swelling, back pain, neck pain SKIN: Absent: rash, itching, pallor HEMATOLOGIC/IMMUNOLOGIC: Absent: easy bleeding, easy bruising, lymphadenopathy, frequent infections ENDOCRINE: Absent: unexplained weight gain, unexplained weight loss, heat intolerance, cold intolerance NEUROLOGIC: Absent: headache, focal weakness or paresthesias, dizziness, unsteady gait, seizure, mental status changes, bladder or bowel incontinence PSYCHIATRIC: Absent: anxiety, depression, suicidal or homicidal ideation, hallucinations. PHYSICAL EXAMINATION Vital Signs - 24 hr 03/26/17 03/26/17 03/26/17 18:00 21:00 22:00 Temperature 97.6 F 97.9 F Pulse Rate 119 H 113 H Respiratory 20 20 20 Rate Blood Pressure 98/69 123/49 O2 Sat by Pulse 95 Oximetry (%) 03/27/17 03/27/17 03/27/17 01:39 05:14 10:00 Temperature 97.4 F L 98 F 98.9 F Pulse Rate 105 H 123 H 92 H Respiratory 20 20 18 Rate Blood Pressure 105/56 117/61 120/70 O2 Sat by Pulse Oximetry (%) 03/27/17 14:01 Temperature 98.5 F Pulse Rate 85 Respiratory 18 Rate Blood Pressure 121/75 O2 Sat by Pulse Oximetry (%) GENERAL: AAOx3,NAD HEAD: NC/AT EYES:PERRLA, EOMI, icteric slera EARS, NOSE, THROAT: Dry mucous membranes. NECK: Supple, no jvd. LUNGS:CTAB HEART: RRR ABDOMEN: Soft, nontender, not distended, normoactive bowel sounds, no guarding, no rebound, no masses. No hepatomegaly or splenomegaly. MUSCULOSKELETAL: Normal range of motion at all joints. No bony deformities or tenderness. No CVA tenderness. LOWER EXTREMITIES: 2+ pulses, warm, well-perfused. No calf tenderness. trace peripheral edema. SKIN: Moderate jaundice. Laboratory Results - last 24 hr 03/27/17 03/27/17 06:00 06:00 WBC 6.2 RBC 3.71 Hgb 12.6 Hct 36.1 MCV 97.3 H MCHC 35.0 RDW 17.0 H Plt Count 195 MPV 9.1 Sodium 138 Potassium 4.0 Chloride 105 Carbon Dioxide 23 Anion Gap 10 BUN 24 H Creatinine 1.6 H Creat Clearance w eGFR 30.94 Random Glucose 96 Calcium 8.8 Total Bilirubin 21.2 H* AST 48 H ALT 31 Alkaline Phosphatase 303 H Total Protein 5.9 L Albumin 2.3 L Lipase 1315 H Active Medications Generic Name Dose Route Start Last Admin Trade Name Freq PRN Reason Stop Dose Admin Bacitracin 1 applic 03/26/17 15:00 03/27/17 14:16 Bacitracin - TP 1 applic BID ORQUIDEA Administration Diphenhydramine HCl 50 mg 03/24/17 10:30 03/27/17 14:15 Benadryl Injection - IVPUSH 50 mg BID [place]A Administration Nebivolol 10 mg 03/24/17 10:00 03/27/17 14:15 Bystolic - PO 10 mg DAILY [place]QU[place]A Administration Pantoprazole Sodium 40 mg 03/24/17 10:00 03/27/17 14:15 Protonix - PO 40 mg DAILY [place]QU[place]A Administration Ramipril 2.5 mg 03/24/17 10:00 03/27/17 14:15 Altace - PO 2.5 mg DAILY [place]QUIDEA Administration ASSESSMENT/PLAN: 81 year old woman with a history of HTN NIDDM HLD, atrial fibrillation on coumadin, who was admitted with painless jaundice for one month. S/P ERCP will need biopsy and possible Wipple. Dispo: We will continue to follow the patient. Thank you for this consultative opportunity. Problem List - Problems (1) FARHANA (acute kidney injury) Assessment/Plan: * Most likely prerenal * Will start IVF * Urine Lytes and Cr * Bladder and Kidney US pending. (2) Hyperbilirubinemia Assessment/Plan: * S/P ERCP * Will be transfered to [place] for biopsy and possible whipple. (3) Afib Assessment/Plan: * Nebivolol (Bystolic -) 10 mg PO DAILY [place]QUIDEA (4) CHF (congestive heart failure) Assessment/Plan: * Nebivolol (Bystolic -) 10 mg PO DAILY * Ramipril (Altace -) 2.5 mg PO DAILY Congestive heart failure type: diastolic (5) HTN (hypertension) Visit type - Emergency Visit Emergency Visit: Yes ED Registration Date: 03/24/17 Care time: The patient presented to the Emergency Department on the above date and was hospitalized for further evaluation of their emergent condition. - New Patient This patient is new to me today: No - Critical Care Critical Care patient: No
[2017-03-27] MEDS ORDERED: DEXTROSE 5%-0.45% SALINE 1,000 ML IV SCH (16:00)
--- NOTE | 2017-03-27 16:02 | PN ---
Teaching Attending Note Name of Resident: Jose Luis Ortega (Nephrology) ATTENDING PHYSICIAN STATEMENT I saw and evaluated the patient. I reviewed the resident's note and discussed the case with the resident. I agree with the resident's findings and plan as documented. Nephrology Consult Please see note filled out by resident. Pt presents with painless jaundice. She developed elevated creatinine and I was called to evaluate her. She says she has no pain. She has not eaten or drank anything as she was NPO. She denies dysuria. pmhx htn and a fib nkda ros jaundice Current Medications Generic Name Dose Route Start Last Admin Trade Name Freq PRN Reason Stop Dose Admin Bacitracin 1 applic 03/26/17 15:00 03/27/17 14:16 Bacitracin - TP 1 applic BID [place]QUIDEA Administration Diphenhydramine HCl 50 mg 03/24/17 10:30 03/27/17 14:15 Benadryl Injection - IVPUSH 50 mg BID [place]A Administration Nebivolol 10 mg 03/24/17 10:00 03/27/17 14:15 Bystolic - PO 10 mg DAILY ORQUIDEA Administration Pantoprazole Sodium 40 mg 03/24/17 10:00 03/27/17 14:15 Protonix - PO 40 mg DAILY [place]QU[place]A Administration Ramipril 2.5 mg 03/24/17 10:00 03/27/17 14:15 Altace - PO 2.5 mg DAILY [place]A Administration Selected Entries 03/26/17 03/27/17 03/27/17 18:00 01:39 05:14 Blood Pressure 98/69 105/56 117/61 Laboratory Tests 03/23/17 03/24/17 03/24/17 21:39 08:45 08:45 WBC Hgb INR 1.25 H D PTT (Actin FS) 29.0 Creatinine 0.8 Total Bilirubin 19.3 H* Direct Bilirubin AST ALT Urine Color Laura Urine Appearance Clear Urine Protein 2+ H Urine Blood 1+ H Urine Nitrite Negative Urine Bilirubin 4.0 Urine Urobilinogen 4.0 e.u/dl H Ur Leukocyte Esterase 1+ H Urine Bacteria Rare 03/25/17 03/25/17 03/26/17 06:00 06:00 06:00 WBC Hgb INR 1.35 H PTT (Actin FS) Creatinine 0.9 1.4 H D Total Bilirubin 19.9 H* 19.6 H* Direct Bilirubin 15.7 H* AST ALT Urine Color Urine Appearance Urine Protein Urine Blood Urine Nitrite Urine Bilirubin Urine Urobilinogen Ur Leukocyte Esterase Urine Bacteria 03/27/17 03/27/17 06:00 06:00 WBC 6.2 Hgb 12.6 INR PTT (Actin FS) Creatinine 1.6 H Total Bilirubin 21.2 H* Direct Bilirubin AST 48 H ALT 31 Urine Color Urine Appearance Urine Protein Urine Blood Urine Nitrite Urine Bilirubin Urine Urobilinogen Ur Leukocyte Esterase Urine Bacteria cardio s1s2 irreg pulm clear GI soft ext neg edema neuro awake and alert skin jaundice Impression 1. painless jaundice 2. FARHANA 3. a-fib 4. HTN Plan - check ultrasound kidneys and bladder - repeat ua - check urine creatinine and sodium to calculate fena - likely pre-renal disease - start fluids - repeat labs in am - pt may be transferred to [place] Dr Willis
[2017-03-27] MEDS: MENTHOL/CAMPHOR 1 APPLIC BTL TP SCH (21:50)
[2017-03-28] MEDS ORDERED: PT OWN MED DRAWER 7, Y5N ONE (10:32)
--- NOTE | 2017-03-28 10:32 | PN ---
Progress Note (short form) - Note Progress Note: AWAITING TRANSFER TO [facility]. LABS ORDERED FOR TODAY PATIENT IS MEDICALLY CLEARED FOR EUS BIOPSY AND MEDICALLY CLEARED BY CARDIOLOGY FOR POSSIBLE WHIPPLE. STRESS TEST/ECHO/CAROTID/RENAL SONO ALLREVIEWED POSSIBILITY OF PULM EMBOLISM IN PAST WHICH REQUIRED ANTICOAGULATION IS ON HOLD FOR NOW. CAN START ELIQUIS ONCE PROCEDURES ARE COMPLETED. Problem List - Problems (1) Biliary obstruction Code(s): K83.1 - OBSTRUCTION OF BILE DUCT (2) Hyperbilirubinemia Code(s): E80.6 - OTHER DISORDERS OF BILIRUBIN METABOLISM (3) Afib Code(s): I48.91 - UNSPECIFIED ATRIAL FIBRILLATION Qualifiers: Atrial fibrillation type: chronic Qualified Code(s): I48.2 - Chronic atrial fibrillation (4) HTN (hypertension) Code(s): I10 - ESSENTIAL (PRIMARY) HYPERTENSION Qualifiers: Hypertension type: essential hypertension Qualified Code(s): I10 - Essential (primary) hypertension
[2017-03-28] MEDS: NEBIVOLOL 5 MG TABLET (FP) PO SCH (10:35)
[2017-03-28] MEDS: BACITRACIN 15 GM TUBE TOPICAL OINTMENT TP SCH (10:35)
[2017-03-28] MEDS: PANTOPRAZOLE 40 MG TABLET (FP) PO SCH (10:36)
[2017-03-28] MEDS: MENTHOL/CAMPHOR 1 APPLIC BTL TP SCH (10:43)
[2017-03-28 12:13] LABS: ALBUMIN 2.4 g/dl (3.4-5.0); ALK PHOS 290 U/L (45-117); ANION GAP 13 (8-16); CALCIUM 9.2 mg/dL (8.5-10.1); CO2 21 mmol/L (21-32); CREATININE 1.3 mg/dL (0.55-1.02); GLUCOSE,RANDOM 151 mg/dL (74-106); SGPT/ALT 31 U/L (12-78)
[2017-03-28 12:43] LABS: SGOT/AST 55 U/L (15-37)
[2017-03-28 12:47] LABS: BILIRUBIN,TOTAL 21.9 mg/dL (0.2-1.0)
[2017-03-28 13:46] VITALS: BP 127/76; PULSE 75; TEMP 98.7
--- NOTE | 2017-03-28 15:14 | PN ---
Physical Exam: SUBJECTIVE: Patient seen and examined at bedside. No overnight events. No new complaints. Continues to have significant jaundice. Denies CP,CARTER, SOB, palpitations, N/V. OBJECTIVE: Vital Signs Period Temp Pulse Resp BP Sys/Morgan Pulse Ox Last 24 Hr 98.5 F-99.1 F 75-86 18-20 120-157/68-83 96 GENERAL: AAOx3,NAD HEAD: NC/AT EYES:PERRLA, EOMI, icteric slera EARS, NOSE, THROAT: Dry mucous membranes. NECK: Supple, no jvd. LUNGS:CTAB HEART: RRR ABDOMEN: Soft, nontender, not distended, normoactive bowel sounds, no guarding, no rebound, no masses. No hepatomegaly or splenomegaly. MUSCULOSKELETAL: Normal range of motion at all joints. No bony deformities or tenderness. No CVA tenderness. LOWER EXTREMITIES: 2+ pulses, warm, well-perfused. No calf tenderness. trace peripheral edema. SKIN: Moderate jaundice. Laboratory Results - last 24 hr 03/28/17 11:20 Sodium 139 Potassium 4.2 Chloride 105 Carbon Dioxide 21 Anion Gap 13 BUN 24 H Creatinine 1.3 H Creat Clearance w eGFR 39.31 Random Glucose 151 H D Calcium 9.2 Total Bilirubin 21.9 H* AST 55 H ALT 31 Alkaline Phosphatase 290 H Total Protein 6.0 L Albumin 2.4 L Active Medications Generic Name Dose Route Start Last Admin Trade Name Freq PRN Reason Stop Dose Admin Bacitracin 1 applic 03/26/17 15:00 03/28/17 10:35 Bacitracin - TP 1 applic BID [place]QU[place]A Administration Camphor/Menthol 1 applic 03/27/17 22:00 03/28/17 10:43 Sarna Anti-Itch - TP 1 applic BID [place]A Administration Diphenhydramine HCl 50 mg 03/24/17 10:30 03/28/17 10:35 Benadryl Injection - IVPUSH 50 mg BID [place] Administration Dextrose/Sodium Chloride 1,000 mls @ 66 mls/hr 03/27/17 16:00 03/27/17 18:14 D5-1/2ns - IV 66 mls/hr ASDIR ORQU[place]A Administration Nebivolol 10 mg 03/24/17 10:00 03/28/17 10:35 Bystolic - PO 10 mg DAILY [place]A Administration Pantoprazole Sodium 40 mg 03/24/17 10:00 03/28/17 10:36 Protonix - PO 40 mg DAILY [place]A Administration ASSESSMENT/PLAN: 81 year old woman with a history of HTN NIDDM HLD, atrial fibrillation on coumadin, who was admitted with painless jaundice for one month. S/P ERCP will need biopsy and possible Wipple. Problem List - Problems (1) FARHANA (acute kidney injury) Assessment/Plan: * improving with IV hydration. * Urine Lytes and Cr pending. * Bladder and Kidney US shows no acute pathology. (2) Hyperbilirubinemia Assessment/Plan: * S/P ERCP * Will be transfered to [place] for biopsy and possible whipple. (3) Afib Assessment/Plan: * Nebivolol (Bystolic -) 10 mg PO DAILY ORQUIDEA (4) CHF (congestive heart failure) Assessment/Plan: * Nebivolol (Bystolic -) 10 mg PO DAILY * Ramipril (Altace -) 2.5 mg PO DAILY Congestive heart failure type: diastolic (5) HTN (hypertension) Visit type - Emergency Visit Emergency Visit: Yes ED Registration Date: 03/24/17 Care time: The patient presented to the Emergency Department on the above date and was hospitalized for further evaluation of their emergent condition. - New Patient This patient is new to me today: No - Critical Care Critical Care patient: No - Discharge Referral Referred to [facility] No
--- NOTE | 2017-03-28 15:31 | PN ---
Teaching Attending Note Name of Resident: Jose Luis Ortega (Nephrology) ATTENDING PHYSICIAN STATEMENT I saw and evaluated the patient. I reviewed the resident's note and discussed the case with the resident. I agree with the resident's findings and plan as documented. Current Medications Generic Name Dose Route Start Last Admin Trade Name Moisésq PRN Reason Stop Dose Admin Bacitracin 1 applic 03/26/17 15:00 03/28/17 10:35 Bacitracin - TP 1 applic BID [place]QU[place]A Administration Camphor/Menthol 1 applic 03/27/17 22:00 03/28/17 10:43 Sarna Anti-Itch - TP 1 applic BID [place]A Administration Diphenhydramine HCl 50 mg 03/24/17 10:30 03/28/17 10:35 Benadryl Injection - IVPUSH 50 mg BID [place] Administration Dextrose/Sodium Chloride 1,000 mls @ 66 mls/hr 03/27/17 16:00 03/27/17 18:14 D5-1/2ns - IV 66 mls/hr ASDIR ORQUIDEA Administration Nebivolol 10 mg 03/24/17 10:00 03/28/17 10:35 Bystolic - PO 10 mg DAILY [place]A Administration Pantoprazole Sodium 40 mg 03/24/17 10:00 03/28/17 10:36 Protonix - PO 40 mg DAILY ORQUIDEA Administration Laboratory Tests 03/28/17 11:20 Creatinine 1.3 H cardio s1s2 irreg pulm clear GI soft ext neg edema neuro awake and alert skin jaundice Impression 1. painless jaundice 2. FARHANA 3. a-fib 4. HTN Plan - renal function is improving - likely FARHANA from pre-renal disease - pt to be transferred to [place] today - cont with fluids - repeat labs in am
[2017-03-28] MEDS ORDERED: DEXTROSE 5%-0.45% SALINE 1,000 ML IV SCH (15:34)
--- NOTE | 2017-04-03 15:44 | EKG ---
Test Reason : Blood Pressure : / mmHG Vent. Rate : 082 BPM Atrial Rate : 076 BPM P-R Int : 000 ms QRS Dur : 086 ms QT Int : 394 ms P-R-T Axes : 000 -02 072 degrees QTc Int : 460 ms ATRIAL FIBRILLATION CANNOT RULE OUT INFERIOR INFARCT (CITED ON OR BEFORE 10-FEB-2010) ABNORMAL ECG WHEN COMPARED WITH ECG OF 14-AUG-2016 15:42, NONSPECIFIC T WAVE ABNORMALITY NO LONGER EVIDENT IN ANTEROLATERAL LEADS Confirmed by JULEE RICHARD MD ([id number]) on 04/03/2017 3:44:21 PM Referred By: Confirmed By:JULEE RICHARD MD
== END 2017-03-28 17:04 | disposition short-term general hospital (02) ==
LOC: JER 20:09 → JERBED 03-24 01:38 → UNDOADMIN 03-24 02:01 → JERBED 03-24 02:01 → J7W 03-24 03:37
PROVIDERS: ADMIT Family Medicine; ATTEND Family Medicine
PROC: 0F798DZ Dilation of Common Bile Duct with Intraluminal Device, Via Natural or Artificial Opening Endoscopic (ICD-10-PCS; principal; 2017-03-25 10:30)
DX: K83.1 Obstruction of bile duct (principal); N17.9 Acute kidney failure, unspecified; I48.2 Chronic atrial fibrillation; I11.0 Hypertensive heart disease with heart failure; I50.32 Chronic diastolic (congestive) heart failure; E11.9 Type 2 diabetes mellitus without complications; E78.5 Hyperlipidemia, unspecified; E80.6 Other disorders of bilirubin metabolism; Z87.891 Personal history of nicotine dependence; Z79.01 Long term (current) use of anticoagulants
CPT/HCPCS: 36415; 71010-TC; 74177-TC; 74330-TC; 76775-TC; 76856-TC; 78452-TC; 80048; 80053; 80076; 81003; 81015; 82140; 82150; 82248; 83605; 83690; 85025; 85027; 85610; 85730; 86301; 86850; 86900; 86901; 90670; 93005; 93010; 93017; 93306-TC; 93880-TC; 94760; 99283-25; A9502